=== PATIENT | male | born 1990 | race Caucasian/White ===

== ENCOUNTER 2023-09-07 20:45 | Emergency (ER) | payer BC ==
[~2023-09-07] VITALS: Ht 180.3 cm; Wt 77.1 kg
[2023-09-07 21:07] VITALS: BP_SYST 126; PULSE 105; RESP 16; TEMP 97.2; O2SAT 95
[2023-09-07] MEDS ORDERED: NAPR-1172 PO (22:37)
[2023-09-07] MEDS ORDERED: CIPR500T5 PO (22:37)
[2023-09-07] MEDS: KETOROLAC TROMETHAMINE 60 MG/2 ML VIAL IM ONE (22:44)
[2023-09-07] MEDS: cefTRIAXone 1 GM in LIDOCAINE 1%, 20 ML MDV 2.1 ML IM ONE (22:45)
[2023-09-07 23:02] VITALS: BP_SYST 137; PULSE 87; RESP 18; TEMP 99.5; O2SAT 97
== END 2023-09-07 23:02 | disposition home or self-care (01) ==
LOC: SED 20:45
DX: H66.001 Acute suppurative otitis media without spontaneous rupture of ear drum, right ear (principal); Z90.89 Acquired absence of other organs; Z79.899 Other long term (current) drug therapy
CPT/HCPCS: 99284; 87070; 87075; 96372; J0696; J1885; J2001